=== PATIENT | male | born 1965 | race Caucasian/White ===

== ENCOUNTER 2017-12-01 10:20 | Emergency (ER) | payer OTHER ==
[~2017-12-01] VITALS: Ht 182.9 cm; Wt 104.3 kg
--- NOTE | 2017-12-01 11:38 | ED SKIN/ALLERGY COMPLAINT ---
History of Present Illness General Chief Complaint: General Adult Stated Complaint: SENT BY DR. BAUTISTA FOR ABCESS ON GROIN AREA Source: patient Exam Limitations: no limitations Vital Signs & Intake/Output Vital Signs & Intake/Output Vital Signs Date Time Temp Pulse Resp B/P B/P Pulse O2 O2 Flow FiO2 Mean Ox Delivery Rate 12/01 1546 98.1 92 18 132/80 97 Room Air 12/01 1228 97 Room Air Room Air 12/01 1226 98.0 94 20 137/83 96 Room Air 12/01 1028 98.6 118 16 155/96 96 Room Air Allergies Coded Allergies: No Known Allergies (12/01/17) Reconcile Medications Amoxicillin 875 MG TABLET 1 TAB PO BID cellulitis Clonazepam 0.5 MG TABLET 1 TAB PO BIDP PRN ANXIETY (Reported) Ezetimibe/Simvastatin (Vytorin 10-20 MG Tablet) 10 MG-20 MG TABLET 1 TAB PO DAILY CHOLESTEROL (Reported) Hydrocodone/Acetaminophen (Hydrocodon-Acetaminophen 5-325) 5 MG-325 MG TABLET 1 TAB PO Q6-8P PRN PAIN (Reported) Lisinopril 20 MG TABLET 1 TAB PO DAILY HEART (Reported) Metoprolol Succinate 25 MG TAB 1 TAB PO DAILY HEART (Reported) Sulfamethoxazole/Trimethoprim (Sulfamethoxazole-Tmp Ds Tablet) 800 MG-160 MG TABLET 1 TAB PO BID ANTIBIOTIC, INFECTION (Reported) Triage Note: PT SENT FROM [facility] TO HAVE ABCESS TO L GROIN DRAINED. DENIES FEVERS/CHILLS. PT WAS PUT ON SMZ-TMP AND PERCOCET ON 11/28 BY PCP. TOOK NEITHER PRESCRIBED MEDICATION TODAY. Triage Nurses Notes Reviewed? yes Onset: Gradual Duration: day(s): Timing: recent history Severity: moderate Location: genitalia HPI: 52 year old male presents to the emergency room with an abscess for three days. He states he had the abscess on his left groin since the weekend which has grown in size and has spread medially from his initial growth despite the use of Bactrim three days ago from his PCP. He endorses a burning sharp pain from his groin to his left leg and back which is 9/10, reduced with ibuprofen to 7/10 for an hour, and worsens with movement. He denies fevers, chills, night sweats, nausea, vomiting, headache, itchiness, dysuria, and fatigue. Past History Travel History Traveled to [place] past 21 day No Medical History Any Pertinent Medical History? see below for history Neurological: NONE EENT: NONE Cardiovascular: hypertension, hyperlipidemia Respiratory: NONE Gastrointestinal: NONE Hepatic: NONE Renal: NONE Musculoskeletal: NONE Psychiatric: NONE Endocrine: NONE Surgical History Surgical History: non-contributory Psychosocial History What is your primary language Lithuanian Tobacco Use: Current Daily Use Daily Tobacco Use Amount/Type: => 5 Cigarettes daily ETOH Use: occasional use Family History Hx Contributory? No Review of Systems Review of Systems Constitutional: Reports: no symptoms. EENTM: Reports: no symptoms. Respiratory: Reports: no symptoms. Cardiovascular: Reports: no symptoms. GI: Reports: no symptoms. Genitourinary: Reports: no symptoms. Musculoskeletal: Reports: no symptoms. Skin: Reports: see HPI. Neurological/Psychological: Reports: no symptoms. Hematologic/Endocrine: Reports: no symptoms. Immunologic/Allergic: Reports: no symptoms. All Other Systems: Reviewed and Negative Physical Exam Physical Exam General Appearance: well developed/nourished, no apparent distress, alert, awake Head: atraumatic, normal appearance Eyes: Bilateral: normal appearance. Ears, Nose, Throat: hearing grossly normal Neck: normal inspection, supple, full range of motion Respiratory: normal breath sounds, no respiratory distress, lungs clear Cardiovascular: regular rate/rhythm Gastrointestinal: normal bowel sounds, soft, non-tender, no organomegaly Back: normal inspection, normal range of motion Extremities: normal inspection, normal range of motion Neurologic/Psych: awake, alert, oriented x 3 Skin: see genital exam Comments: Genitals: testicular exam WNL, 2x3cm area of swelling and fluctuance to left proxmial thigh with erythema, warmth, and tenderness to surrounding thigh and left groin, no forneir's gangrene Progress Differential Diagnosis: abscess/cellulitis, allergic reaction, contact dermatitis, urticaria, forneir's gangrene Plan of Care: Orders Procedure Date/time Status TRUNK AREA CULTURE 12/01 1548 Active CHLAMYDIA-GC DNA PROBE 12/01 1147 Active BLOOD CULTURE 12/01 1147 Active COMPREHENSIVE METABOLIC PANEL 12/01 1147 Complete CBC WITHOUT DIFFERENTIAL 12/01 1147 Complete Laboratory Tests 12/01/17 1220: Anion Gap 10, Estimated GFR > 60, BUN/Creatinine Ratio 13.8, Glucose 99, Calcium 9.8, Total Bilirubin 0.8, AST 35, ALT 68, Alkaline Phosphatase 77, Total Protein 7.0, Albumin 4.2, Globulin 2.8, Albumin/Globulin Ratio 1.5, CBC w Diff NO MAN DIFF REQ, RBC 4.61 L, MCV 97.2 H, MCH 33.4 H, MCHC 34.4, RDW 12.8, MPV 6.8 L , Gran % 75.7 H, Lymphocytes % 16.6 L, Monocytes % 7.0, Eosinophils % 0.4, Basophils % 0.3, Absolute Granulocytes 8.1 H, Absolute Lymphocytes 1.8, Absolute Monocytes 0.8 H, Absolute Eosinophils 0, Absolute Basophils 0 12/01/17 1147: Urine Color Cancelled, Urine Clarity Cancelled, Urine pH Cancelled, Ur Specific [place] Cancelled, Urine Protein Cancelled, Urine Ketones Cancelled, Urine Nitrite Cancelled, Urine Bilirubin Cancelled, Urine Urobilinogen Cancelled, Ur Leukocyte Esterase Cancelled, Ur Microscopic Cancelled, Urine Hemoglobin Cancelled, Urine Glucose Cancelled Microbiology 12/01 1730 TRUNK: Culture & Sensitivity - RECD 12/01 1730 TRUNK: Gram Stain - RECD 12/01 1245 BLOOD: Blood Culture - RECD 12/01 1220 BLOOD: Blood Culture - RECD 12/01 1147 URINE ROUT: GC DNA Probe - ORD 12/01 1147 URINE ROUT: Chlamydia DNA Probe (DAVID) - ORD Abscess I&D performed with large volume purulent material from abscess. Packing placed with dressing applied. Patient educated on hygiene and warm compress. Culture sent to lab. Patient started on amoxicillin in addition to current Bactrim therapy. Patient to return in 2 days for wound check. Patient tolerated procedure well. The patient is afebrile, no white count, we'll reassess wound in 2 days. The patient agrees with the plan of care. The patient was discussed with Dr. Talbot who agrees with this plan. Departure Departure Disposition: HOME OR SELF CARE Condition: Stable Clinical Impression Primary Impression: Abscess Secondary Impressions: Cellulitis Qualifiers: Site of cellulitis: trunk Site of cellulitis of trunk: groin Qualified Code: L03.314 - Cellulitis of groin Referrals: Franck Lang DO (PCP/Family) Additional Instructions: Continue to take Bactrim as prescribed. Begin amoxicillin today. Continue your pain medication as prescribed. Return in 2 days for wound check. Return sooner if you notice increasing swelling and redness, fevers, vomiting, abdominal pain, testicular pain. Please note that there might be incidental findings in your evaluation that are unrelated to the current emergency department visit. Please notify your primary care doctor about this emergency department visit in order to obtain and review all of the testing performed so that these incidental findings can be monitored as needed. If you had an x-ray performed, please understand that some fractures may not be seen on the initial set of x-rays. If your symptoms persist you might need a repeat set of x-rays to check for such a fracture. If you had a laceration evaluated, please understand that foreign bodies such as glass or wood may not be visible to the naked eye or on plain x-rays. If the wound becomes red, swollen, increasingly more painful or if there is any drainage from the wound, please have it reevaluated by a physician for the possibility of a retained foreign body. If you're unable to follow up as outlined in the discharge instructions please return to the emergency department. Thank you for choosing the [facility] Emergency Department for your care. It was a pleasure to serve you today. Departure Forms: Customer Survey General Discharge Information Prescriptions: Current Visit Scripts Amoxicillin 1 TAB PO BID #20 TAB Procedures Incision and Drainage Site: left groin Blade Size: 11 I & D Procedure: Yes: betadine prep, sterile drapes applied, sterile dressing applied, wick placed. Progress: 1% lidocaine injected locally for anesthesia. Large volume purulent fluid drained from abscess. Patient tolerated procedure well.
[2017-12-01] MEDS ORDERED: HYDROCODON-ACE1 EAC2 PO (11:52)
[2017-12-01] MEDS ORDERED: SULFAMETHOXAZO1 EAC1 PO (11:53)
[2017-12-01] MEDS ORDERED: CLONAZEPAM0.5 M2 PO (11:53)
[2017-12-01] MEDS ORDERED: VYTORIN 10-201 EACH PO (11:53)
[2017-12-01] MEDS ORDERED: LISINOPRIL20 M1 PO (11:53)
[2017-12-01] MEDS ORDERED: METOPROLOL SUCC25 M1 PO (11:54)
[2017-12-01 12:31] LABS: ABSOLUTE BASOPHIL COUNT 0 /CUMM (0.0-0.2); ABSOLUTE EOSINOPHIL COUNT 0 /CUMM (0.0-0.7); ABSOLUTE GRANULOCYTE CT 8.1 /CUMM (1.4-6.5); ABSOLUTE LYMPH COUNT 1.8 /CUMM (1.2-3.4); ABSOLUTE MONOCYTE COUNT 0.8 /CUMM (0.10-0.60); BASOPHIL % 0.3 % (0.0-2.0); EOSINOPHIL % 0.4 % (0-5); GRANULOCYTE % 75.7 % (42.2-75.2); HEMATOCRIT 44.8 % (42-52); MEAN CORPUSCULAR HGB 33.4 PG (27.0-31.0); MEAN CORPUSCULAR HGB CONC 34.4 G/DL (33.0-37.0); MEAN CORPUSCULAR VOLUME 97.2 FL (80.0-94.0); MEAN PLATELET VOLUME 6.8 FL (7.4-10.4); PLATELET COUNT 244 /CUMM (130-400); RBC DISTRIBUTION WIDTH 12.8 % (11.5-14.5); RED BLOOD CELL CT 4.61 /CUMM (4.70-6.10); WHITE BLOOD CELL COUNT 10.7 /CUMM (4.8-10.8)
--- NOTE | 2017-12-01 13:52 | ULTRASOUND REPORT ---
EXAMINATION: US SUPERFICIAL IMAGING, EXTREMITY CLINICAL INFORMATION: Left upper thigh swelling and cellulitis. Rule out abscess. Assess pocket of fluid. COMPARISON: None TECHNIQUE: Focused ultrasound of the left groin/upper inner thigh was performed in region of patient's erythema and pain. Real-time assessment by the reading radiologist was performed. FINDINGS: In region of the patient's maximal discomfort in the upper inner left thigh, a complex phlegmonous collection/evolving abscess is seen with mixed hypo- and hyperechogenicity, measuring 3.2 x 2.2 x 2.1 cm in size. With color Doppler imaging, there is mild hyperemia of the edematous and inflamed soft tissues. There is diffuse thickening of the subcutaneous tissues in region of the erythema. In the left groin, morphologically normal-appearing and normal-sized lymph nodes are seen without hyperemia. The groin vessels were assessed with color Doppler imaging and are found to be patent. A dedicated deep venous thrombosis exam was not performed. IMPRESSION: 1. Diffuse cutaneous and subcutaneous soft tissue edema is seen in the upper inner left thigh. 2. Superimposed focal phlegmonous collection/evolving abscess is seen, measuring up to 3.2 cm in maximal diameter.
[2017-12-01] MEDS ORDERED: AMOXICILLIN875 M1 PO (15:33)
[2017-12-01 15:46] VITALS: BP 132/80
== END 2017-12-01 16:10 ==
LOC: ERH 10:20
PROVIDERS: Physician Assistant
DX: L02.214 Cutaneous abscess of groin (principal); L03.314 Cellulitis of groin
CPT/HCPCS: 76881; 87040; 87070; 87491; 87591; 96374; 96375; J1885